=== PATIENT | female | born 1955 | race Caucasian/White ===

== ENCOUNTER → 2023-05-20 06:34 | Outpatient (REF) | payer MEDICARE, OTHER, SELFPAY ==
[2023-05-20 07:08] LABS: % Basophils 0.9 % (0-2); % Eosinophils 3.3 % (0-6); % Immature Granulocytes 0.9 % (0-0.5); % Lymphocytes 29.9 % (20.5-51.1); % Monocytes 9.9 % (1.7-9.3); % Neutrophils 55.1 % (42.2-75.2); Absolute Eosinophils 0.1 10^3/uL (0-0.7); Absolute Monocytes 0.3 10^3/uL (0.1-0.6); Absolute Neutrophils 1.8 10^3/uL (1.4-6.5); Hematocrit 42.5 % (37.0-47.0); Hemoglobin 13.7 g/dL (12.0-16.0); Mean Corp Hgb Conc. 32.2 g/dL (33.0-37.0); Mean Corpuscular Hgb 29.1 pg (27.0-31.0); Mean Corpuscular Volume 90.4 fL (81.0-99.0); Mean Platelet Volume 9.7 fL (7.4-10.4); Nucleated Red Blood Cells % 0 %; Platelet Count 239 10^3/uL (130-400); Red Cell Dist. Width 15.5 % (11.5-14.5); White Blood Cell Count 3.3 10^3/uL (4.8-10.8)
[2023-05-20 07:18] LABS: ALT (SGPT) 19 U/L (0-35); AST (SGOT) 27 U/L (14-36); Alkaline Phosphatase 109 U/L (38-126); Blood Urea Nitrogen 13 mg/dl (7-17); Calcium 9.3 mg/dl (8.4-10.2); Carbon Dioxide 32 mmol/L (22-30); Chloride 105 mmol/L (98-107); Glucose 95 mg/dl (70-99); Potassium 4.4 mmol/L (3.5-5.1); Sodium 139 mmol/L (135-145); Total Bilirubin 0.5 mg/dl (0.2-1.3); Total Protein 6.6 g/dl (6.3-8.2); eGFR > 60.00
== END ==
LOC: REG 06:34
PROVIDERS: ATTENDING PHYSICIAN Internal Medicine Hematology & Oncology; FAMILY PHYSICIAN Internal Medicine
DX: C50.412 Malignant neoplasm of upper-outer quadrant of left female breast (principal)
CPT/HCPCS: 36415; 80053; 85025

== ENCOUNTER → 2023-06-09 06:21 | Outpatient (REF) | payer MEDICARE, OTHER, SELFPAY ==
[2023-06-09 06:51] LABS: % Basophils 0.4 % (0-2); % Eosinophils 1.7 % (0-6); % Immature Granulocytes 0.4 % (0-0.5); % Monocytes 6.7 % (1.7-9.3); % Neutrophils 71.8 % (42.2-75.2); Absolute Eosinophils 0.1 10^3/uL (0-0.7); Absolute Monocytes 0.4 10^3/uL (0.1-0.6); Absolute Neutrophils 3.8 10^3/uL (1.4-6.5); Hematocrit 42.3 % (37.0-47.0); Mean Corp Hgb Conc. 33.1 g/dL (33.0-37.0); Mean Corpuscular Volume 87.8 fL (81.0-99.0); Mean Platelet Volume 9.5 fL (7.4-10.4); Nucleated Red Blood Cells % 0 %; Platelet Count 225 10^3/uL (130-400); Red Blood Cell Count 4.82 10^6/uL (4.20-5.40); Red Cell Dist. Width 14.8 % (11.5-14.5); White Blood Cell Count 5.3 10^3/uL (4.8-10.8)
[2023-06-09 07:26] LABS: ALT (SGPT) 20 U/L (0-35); AST (SGOT) 32 U/L (14-36); Alkaline Phosphatase 85 U/L (38-126); Blood Urea Nitrogen 22 mg/dl (7-17); Calcium 9.6 mg/dl (8.4-10.2); Carbon Dioxide 28 mmol/L (22-30); Chloride 102 mmol/L (98-107); Glucose 94 mg/dl (70-99); Potassium 4.6 mmol/L (3.5-5.1); Sodium 139 mmol/L (135-145); Total Bilirubin 0.7 mg/dl (0.2-1.3); Total Protein 7.4 g/dl (6.3-8.2); eGFR > 60.00
== END ==
LOC: REG 06:21
PROVIDERS: ATTENDING PHYSICIAN Internal Medicine Hematology & Oncology; FAMILY PHYSICIAN Internal Medicine
DX: C50.412 Malignant neoplasm of upper-outer quadrant of left female breast (principal); D50.9 Iron deficiency anemia, unspecified
CPT/HCPCS: 36415; 80053; 85025

== ENCOUNTER → 2023-06-23 09:50 | Outpatient (REF) | payer MEDICARE, OTHER, SELFPAY | LOC: MRI 3T 09:50 | PROVIDERS: ATTENDING PHYSICIAN Surgery; FAMILY PHYSICIAN Internal Medicine | DX: R92.8 Other abnormal and inconclusive findings on diagnostic imaging of breast (principal) | CPT/HCPCS: 77049; 93306; 93356; A9585 ==

== ENCOUNTER → 2023-07-01 06:20 | Outpatient (REF) | payer MEDICARE, OTHER, SELFPAY ==
[2023-07-01 06:55] LABS: % Basophils 0.7 % (0-2); % Eosinophils 2.6 % (0-6); % Immature Granulocytes 0.2 % (0-0.5); % Lymphocytes 24.4 % (20.5-51.1); % Monocytes 8.1 % (1.7-9.3); Absolute Eosinophils 0.1 10^3/uL (0-0.7); Absolute Lymphocytes 1.1 10^3/uL (1.2-3.4); Absolute Monocytes 0.4 10^3/uL (0.1-0.6); Absolute Neutrophils 2.8 10^3/uL (1.4-6.5); Hematocrit 43.2 % (37.0-47.0); Hemoglobin 13.7 g/dL (12.0-16.0); Mean Corp Hgb Conc. 31.7 g/dL (33.0-37.0); Mean Corpuscular Volume 91.3 fL (81.0-99.0); Mean Platelet Volume 9.9 fL (7.4-10.4); Nucleated Red Blood Cells % 0 %; Platelet Count 184 10^3/uL (130-400); Red Blood Cell Count 4.73 10^6/uL (4.20-5.40); White Blood Cell Count 4.3 10^3/uL (4.8-10.8)
[2023-07-01 07:29] LABS: ALT (SGPT) 29 U/L (0-35); AST (SGOT) 31 U/L (14-36); Albumin 4.2 g/dl (3.5-5.0); Alkaline Phosphatase 95 U/L (38-126); Blood Urea Nitrogen 16 mg/dl (7-17); Calcium 9.3 mg/dl (8.4-10.2); Carbon Dioxide 26 mmol/L (22-30); Chloride 106 mmol/L (98-107); Glucose 92 mg/dl (70-99); Potassium 4.3 mmol/L (3.5-5.1); Sodium 139 mmol/L (135-145); Total Bilirubin 0.5 mg/dl (0.2-1.3); Total Protein 6.9 g/dl (6.3-8.2); eGFR > 60.00
== END ==
LOC: REG 06:20
PROVIDERS: ATTENDING PHYSICIAN Internal Medicine Hematology & Oncology; FAMILY PHYSICIAN Internal Medicine
DX: C50.412 Malignant neoplasm of upper-outer quadrant of left female breast (principal); D50.9 Iron deficiency anemia, unspecified
CPT/HCPCS: 36415; 80053; 85025

== ENCOUNTER → 2023-07-22 06:16 | Outpatient (REF) | payer MEDICARE, OTHER, SELFPAY ==
[2023-07-22 07:35] LABS: % Basophils 0.8 % (0-2); % Eosinophils 3.2 % (0-6); % Immature Granulocytes 0.3 % (0-0.5); % Lymphocytes 29.2 % (20.5-51.1); % Monocytes 8.1 % (1.7-9.3); % Neutrophils 58.4 % (42.2-75.2); Absolute Eosinophils 0.1 10^3/uL (0-0.7); Absolute Lymphocytes 1.1 10^3/uL (1.2-3.4); Absolute Monocytes 0.3 10^3/uL (0.1-0.6); Absolute Neutrophils 2.2 10^3/uL (1.4-6.5); Hematocrit 42.7 % (37.0-47.0); Hemoglobin 14.2 g/dL (12.0-16.0); Mean Corp Hgb Conc. 33.3 g/dL (33.0-37.0); Mean Corpuscular Volume 90.1 fL (81.0-99.0); Mean Platelet Volume 10.1 fL (7.4-10.4); Nucleated Red Blood Cells % 0 %; Platelet Count 197 10^3/uL (130-400); Red Blood Cell Count 4.74 10^6/uL (4.20-5.40); Red Cell Dist. Width 14.3 % (11.5-14.5); White Blood Cell Count 3.7 10^3/uL (4.8-10.8)
[2023-07-22 08:07] LABS: ALT (SGPT) 29 U/L (0-35); AST (SGOT) 32 U/L (14-36); Albumin 4.6 g/dl (3.5-5.0); Alkaline Phosphatase 91 U/L (38-126); Blood Urea Nitrogen 20 mg/dl (7-17); Carbon Dioxide 28 mmol/L (22-30); Chloride 102 mmol/L (98-107); Glucose 91 mg/dl (70-99); Potassium 4.2 mmol/L (3.5-5.1); Sodium 139 mmol/L (135-145); Total Bilirubin 0.6 mg/dl (0.2-1.3); Total Protein 7.1 g/dl (6.3-8.2); eGFR > 60.00
== END ==
LOC: REG 06:16
PROVIDERS: ATTENDING PHYSICIAN Internal Medicine Hematology & Oncology; FAMILY PHYSICIAN Internal Medicine
DX: C50.412 Malignant neoplasm of upper-outer quadrant of left female breast (principal); D50.9 Iron deficiency anemia, unspecified
CPT/HCPCS: 36415; 80053; 85025

== ENCOUNTER → 2023-08-12 06:22 | Outpatient (REF) | payer MEDICARE, OTHER, SELFPAY ==
[2023-08-12 07:40] LABS: % Basophils 0.8 % (0-2); % Eosinophils 3.1 % (0-6); % Immature Granulocytes 0.3 % (0-0.5); % Lymphocytes 28.3 % (20.5-51.1); % Monocytes 8.2 % (1.7-9.3); % Neutrophils 59.3 % (42.2-75.2); Absolute Eosinophils 0.1 10^3/uL (0-0.7); Absolute Monocytes 0.3 10^3/uL (0.1-0.6); Absolute Neutrophils 2.1 10^3/uL (1.4-6.5); Hematocrit 41.9 % (37.0-47.0); Hemoglobin 14.1 g/dL (12.0-16.0); Mean Corp Hgb Conc. 33.7 g/dL (33.0-37.0); Mean Corpuscular Hgb 30.5 pg (27.0-31.0); Mean Corpuscular Volume 90.5 fL (81.0-99.0); Mean Platelet Volume 10.1 fL (7.4-10.4); Nucleated Red Blood Cells % 0 %; Platelet Count 193 10^3/uL (130-400); Red Blood Cell Count 4.63 10^6/uL (4.20-5.40); Red Cell Dist. Width 13.7 % (11.5-14.5); White Blood Cell Count 3.5 10^3/uL (4.8-10.8)
[2023-08-12 07:51] LABS: ALT (SGPT) 34 U/L (0-35); AST (SGOT) 34 U/L (14-36); Albumin 4.3 g/dl (3.5-5.0); Alkaline Phosphatase 90 U/L (38-126); Blood Urea Nitrogen 20 mg/dl (7-17); Carbon Dioxide 25 mmol/L (22-30); Chloride 106 mmol/L (98-107); Glucose 96 mg/dl (70-99); Potassium 4.3 mmol/L (3.5-5.1); Sodium 139 mmol/L (135-145); Total Bilirubin 0.4 mg/dl (0.2-1.3); Total Protein 6.9 g/dl (6.3-8.2); eGFR > 60.00
== END ==
LOC: REG 06:22
PROVIDERS: ATTENDING PHYSICIAN Internal Medicine Hematology & Oncology
DX: C50.412 Malignant neoplasm of upper-outer quadrant of left female breast (principal); D50.9 Iron deficiency anemia, unspecified
CPT/HCPCS: 36415; 80053; 85025

== ENCOUNTER → 2023-09-23 13:17 | Outpatient (REF) | payer MEDICARE, OTHER, SELFPAY | LOC: RCS 13:17 | PROVIDERS: ATTENDING PHYSICIAN Internal Medicine Cardiovascular Disease; FAMILY PHYSICIAN Internal Medicine; REFERRING PHYSICIAN Internal Medicine Hematology & Oncology | DX: R94.31 Abnormal electrocardiogram [ECG] [EKG] (principal); T45.1X5D Adverse effect of antineoplastic and immunosuppressive drugs, subsequent encounter; C50.412 Malignant neoplasm of upper-outer quadrant of left female breast; D50.9 Iron deficiency anemia, unspecified | CPT/HCPCS: 93017; 93350 ==

== ENCOUNTER → 2023-10-05 12:18 | Outpatient (REF) | payer MEDICARE, OTHER, SELFPAY ==
[2023-10-05 13:04] LABS: % Basophils 0.5 % (0-2); % Eosinophils 1.9 % (0-6); % Immature Granulocytes 0.2 % (0-0.5); % Lymphocytes 31.4 % (20.5-51.1); % Monocytes 7.9 % (1.7-9.3); % Neutrophils 58.1 % (42.2-75.2); Absolute Eosinophils 0.1 10^3/uL (0-0.7); Absolute Lymphocytes 1.3 10^3/uL (1.2-3.4); Absolute Monocytes 0.3 10^3/uL (0.1-0.6); Absolute Neutrophils 2.4 10^3/uL (1.4-6.5); Hematocrit 41.5 % (37.0-47.0); Hemoglobin 13.7 g/dL (12.0-16.0); Mean Corpuscular Hgb 30.4 pg (27.0-31.0); Mean Corpuscular Volume 92.2 fL (81.0-99.0); Mean Platelet Volume 10.2 fL (7.4-10.4); Nucleated Red Blood Cells % 0 %; Platelet Count 176 10^3/uL (130-400); Red Cell Dist. Width 12.9 % (11.5-14.5); White Blood Cell Count 4.2 10^3/uL (4.8-10.8)
[2023-10-05 13:29] LABS: ALT (SGPT) 30 U/L (0-35); AST (SGOT) 31 U/L (14-36); Albumin 4.4 g/dl (3.5-5.0); Alkaline Phosphatase 91 U/L (38-126); Blood Urea Nitrogen 12 mg/dl (7-17); Calcium 9.9 mg/dl (8.4-10.2); Carbon Dioxide 28 mmol/L (22-30); Chloride 104 mmol/L (98-107); Glucose 89 mg/dl (70-99); HDL Cholesterol 60 mg/dl; LDL Cholesterol, Calculated 106 mg/dl; Potassium 4.3 mmol/L (3.5-5.1); Sodium 141 mmol/L (135-145); Total Bilirubin 0.6 mg/dl (0.2-1.3); Total Cholesterol 178 mg/dl (50-199); Total Protein 6.9 g/dl (6.3-8.2); Triglyceride 64 mg/dl (10-149); Very Low Density Lipoprotein 12 mg/dl (0-30); eGFR > 60.00
[2023-10-06 17:27] LABS: CA 27-29 11.5 U/mL (<=39.0)
== END ==
LOC: REG 12:18
PROVIDERS: ATTENDING PHYSICIAN Internal Medicine Hematology & Oncology; FAMILY PHYSICIAN Internal Medicine
DX: C50.412 Malignant neoplasm of upper-outer quadrant of left female breast (principal); D50.9 Iron deficiency anemia, unspecified; E44.1 Mild protein-calorie malnutrition
CPT/HCPCS: 36415; 80053; 80061; 85025; 86300

== ENCOUNTER → 2023-12-23 06:30 | Outpatient (REF) | payer MEDICARE, OTHER, SELFPAY ==
[2023-12-23 07:50] LABS: % Basophils 1.1 % (0-2); % Eosinophils 2.4 % (0-6); % Immature Granulocytes 0.3 % (0-0.5); % Lymphocytes 30.8 % (20.5-51.1); % Monocytes 8.9 % (1.7-9.3); % Neutrophils 56.5 % (42.2-75.2); Absolute Eosinophils 0.1 10^3/uL (0-0.7); Absolute Lymphocytes 1.2 10^3/uL (1.2-3.4); Absolute Monocytes 0.3 10^3/uL (0.1-0.6); Absolute Neutrophils 2.2 10^3/uL (1.4-6.5); Hematocrit 42.5 % (37.0-47.0); Hemoglobin 14.3 g/dL (12.0-16.0); Mean Corp Hgb Conc. 33.6 g/dL (33.0-37.0); Mean Corpuscular Hgb 31.4 pg (27.0-31.0); Mean Corpuscular Volume 93.4 fL (81.0-99.0); Mean Platelet Volume 10.5 fL (7.4-10.4); Nucleated Red Blood Cells % 0 %; Platelet Count 188 10^3/uL (130-400); Red Blood Cell Count 4.55 10^6/uL (4.20-5.40); Red Cell Dist. Width 13.2 % (11.5-14.5); White Blood Cell Count 3.8 10^3/uL (4.8-10.8)
[2023-12-23 08:26] LABS: ALT (SGPT) 25 U/L (0-35); AST (SGOT) 32 U/L (14-36); Albumin 4.4 g/dl (3.5-5.0); Alkaline Phosphatase 78 U/L (38-126); Blood Urea Nitrogen 18 mg/dl (7-17); Calcium 9.7 mg/dl (8.4-10.2); Carbon Dioxide 26 mmol/L (22-30); Chloride 104 mmol/L (98-107); Glucose 95 mg/dl (70-99); HDL Cholesterol 72 mg/dl; LDL Cholesterol, Calculated 112 mg/dl; Potassium 4.5 mmol/L (3.5-5.1); Sodium 143 mmol/L (135-145); Total Bilirubin 0.6 mg/dl (0.2-1.3); Total Cholesterol 199 mg/dl (50-199); Triglyceride 78 mg/dl (10-149); Very Low Density Lipoprotein 15 mg/dl (0-30); eGFR > 60.00
[2023-12-24 23:29] LABS: CA 27-29 27.5 U/mL (<=39.0)
== END ==
LOC: REG 06:30
PROVIDERS: ATTENDING PHYSICIAN Internal Medicine Hematology & Oncology; FAMILY PHYSICIAN Internal Medicine
DX: C50.412 Malignant neoplasm of upper-outer quadrant of left female breast (principal); D50.9 Iron deficiency anemia, unspecified; Z79.899 Other long term (current) drug therapy
CPT/HCPCS: 36415; 80053; 80061; 85025; 86300

== ENCOUNTER → 2024-01-13 08:11 | Outpatient (REF) | payer MEDICARE, OTHER, SELFPAY | LOC: HWRAD 08:11 | PROVIDERS: ATTENDING PHYSICIAN Internal Medicine Hematology & Oncology; FAMILY PHYSICIAN Internal Medicine | DX: C50.412 Malignant neoplasm of upper-outer quadrant of left female breast (principal); D50.9 Iron deficiency anemia, unspecified | CPT/HCPCS: 71260; 74177; Q9967 ==

== ENCOUNTER → 2024-01-20 07:48 | Outpatient (REF) | payer MEDICARE, OTHER, SELFPAY | LOC: RAD 07:48 | PROVIDERS: ATTENDING PHYSICIAN Internal Medicine Hematology & Oncology; FAMILY PHYSICIAN Internal Medicine | DX: C50.412 Malignant neoplasm of upper-outer quadrant of left female breast (principal); D50.9 Iron deficiency anemia, unspecified | CPT/HCPCS: 78306; A9503 ==

== ENCOUNTER → 2024-02-16 08:42 | Outpatient (REF) | payer MEDICARE, OTHER, SELFPAY | LOC: HWRAD 08:42 | PROVIDERS: ATTENDING PHYSICIAN Internal Medicine | DX: M81.0 Age-related osteoporosis without current pathological fracture (principal) | CPT/HCPCS: 77080 ==

== ENCOUNTER → 2024-02-19 09:42 | Outpatient (REF) | payer MEDICARE, OTHER, SELFPAY | LOC: HWWDC 09:42 | PROVIDERS: ATTENDING PHYSICIAN Internal Medicine Hematology & Oncology; FAMILY PHYSICIAN Internal Medicine | DX: Z12.31 Encounter for screening mammogram for malignant neoplasm of breast (principal) | CPT/HCPCS: 77063; 77067 ==

== ENCOUNTER → 2024-05-27 06:19 | Outpatient (REF) | payer MEDICARE, OTHER, SELFPAY ==
[2024-05-27 07:31] LABS: % Eosinophils 2.3 % (0-6); % Immature Granulocytes 0.3 % (0-0.5); % Lymphocytes 30.5 % (20.5-51.1); % Monocytes 7.6 % (1.7-9.3); % Neutrophils 58.3 % (42.2-75.2); Absolute Eosinophils 0.1 10^3/uL (0-0.7); Absolute Lymphocytes 1.2 10^3/uL (1.2-3.4); Absolute Monocytes 0.3 10^3/uL (0.1-0.6); Absolute Neutrophils 2.3 10^3/uL (1.4-6.5); Hematocrit 44.7 % (37.0-47.0); Hemoglobin 14.6 g/dL (12.0-16.0); Mean Corp Hgb Conc. 32.7 g/dL (33.0-37.0); Mean Corpuscular Hgb 30.4 pg (27.0-31.0); Mean Corpuscular Volume 93.1 fL (81.0-99.0); Mean Platelet Volume 10.3 fL (7.4-10.4); Nucleated Red Blood Cells % 0 %; Platelet Count 183 10^3/uL (130-400); Red Cell Dist. Width 13.2 % (11.5-14.5); White Blood Cell Count 3.9 10^3/uL (4.8-10.8)
[2024-05-27 07:49] LABS: ALT (SGPT) 28 U/L (0-35); AST (SGOT) 29 U/L (14-36); Albumin 4.2 g/dl (3.5-5.0); Alkaline Phosphatase 62 U/L (38-126); Blood Urea Nitrogen 20 mg/dl (7-17); Calcium 9.4 mg/dl (8.4-10.2); Carbon Dioxide 29 mmol/L (22-30); Chloride 105 mmol/L (98-107); Glucose 95 mg/dl (70-99); HDL Cholesterol 84 mg/dl; LDL Cholesterol, Calculated 111 mg/dl; Sodium 141 mmol/L (135-145); Total Bilirubin 0.4 mg/dl (0.2-1.3); Total Cholesterol 204 mg/dl (50-199); Total Protein 6.8 g/dl (6.3-8.2); Triglyceride 47 mg/dl (10-149); Very Low Density Lipoprotein 9 mg/dl (0-30); eGFR > 60.00
[2024-05-29 02:21] LABS: CA 27-29 27.1 U/mL (<=39.0)
== END ==
LOC: REG 06:19
PROVIDERS: ATTENDING PHYSICIAN Internal Medicine Hematology & Oncology; FAMILY PHYSICIAN Internal Medicine
DX: C50.412 Malignant neoplasm of upper-outer quadrant of left female breast (principal); D50.9 Iron deficiency anemia, unspecified; C50.919 Malignant neoplasm of unspecified site of unspecified female breast; E44.1 Mild protein-calorie malnutrition; K29.70 Gastritis, unspecified, without bleeding
CPT/HCPCS: 36415; 80053; 80061; 85025; 86300

== ENCOUNTER → 2024-06-09 08:21 | Outpatient (REF) | payer MEDICARE, OTHER, SELFPAY | LOC: WDC 08:21 | PROVIDERS: ATTENDING PHYSICIAN Family Medicine Geriatric Medicine; FAMILY PHYSICIAN Internal Medicine | DX: R92.2 Inconclusive mammogram (principal); Z85.3 Personal history of malignant neoplasm of breast | CPT/HCPCS: 76641 ==

== ENCOUNTER → 2024-10-24 06:22 | Outpatient (REF) | payer MEDICARE, OTHER, SELFPAY ==
[2024-10-24 07:38] LABS: Hematocrit 43.1 % (37.0-47.0); Hemoglobin 14.3 g/dL (12.0-16.0); Mean Corp Hgb Conc. 33.2 g/dL (33.0-37.0); Mean Corpuscular Volume 92.1 fL (81.0-99.0); Nucleated Red Blood Cells % 0 %; Platelet Count 170 10^3/uL (130-400); Red Cell Dist. Width 13.5 % (11.5-14.5)
[2024-10-24 08:07] LABS: ALT (SGPT) 20 U/L (0-35); AST (SGOT) 24 U/L (14-36); Albumin 4.6 g/dl (3.5-5.0); Alkaline Phosphatase 63 U/L (38-126); Blood Urea Nitrogen 18 mg/dl (7-17); Calcium 9.6 mg/dl (8.4-10.2); Carbon Dioxide 26 mmol/L (22-30); Chloride 107 mmol/L (98-107); Glucose 99 mg/dl (70-99); HDL Cholesterol 70 mg/dl; LDL Cholesterol, Calculated 129 mg/dl; Potassium 4.5 mmol/L (3.5-5.1); Sodium 141 mmol/L (135-145); Total Protein 7.2 g/dl (6.3-8.2); Very Low Density Lipoprotein 11 mg/dl (0-30); eGFR > 60.00
[2024-10-25 23:00] LABS: CA 27-29 24.7 U/mL (<=39.0)
== END ==
LOC: REG 06:22
PROVIDERS: ATTENDING PHYSICIAN Internal Medicine Hematology & Oncology
DX: C50.412 Malignant neoplasm of upper-outer quadrant of left female breast (principal); D50.9 Iron deficiency anemia, unspecified; E44.1 Mild protein-calorie malnutrition
CPT/HCPCS: 36415; 80053; 80061; 85025; 86300

== ENCOUNTER → 2025-02-01 08:28 | Outpatient (REF) | payer MEDICARE, OTHER, SELFPAY ==
[2025-02-01 12:22] LABS: Hematocrit 42.0 % (37.0-47.0); Hemoglobin 14.0 g/dL (12.0-16.0); Mean Corp Hgb Conc. 33.3 g/dL (33.0-37.0); Mean Corpuscular Volume 92.7 fL (81.0-99.0); Nucleated Red Blood Cells % 0 %; Platelet Count 199 10^3/uL (130-400); Red Cell Dist. Width 13.2 % (11.5-14.5)
[2025-02-01 12:35] LABS: ALT (SGPT) 22 U/L (0-35); AST (SGOT) 26 U/L (14-36); Albumin 4.5 g/dl (3.5-5.0); Alkaline Phosphatase 66 U/L (38-126); Blood Urea Nitrogen 23 mg/dl (7-17); Calcium 9.6 mg/dl (8.4-10.2); Carbon Dioxide 28 mmol/L (22-30); Chloride 106 mmol/L (98-107); Glucose 94 mg/dl (70-99); HDL Cholesterol 85 mg/dl; LDL Cholesterol, Calculated 126 mg/dl; Potassium 4.4 mmol/L (3.5-5.1); Sodium 137 mmol/L (135-145); Total Protein 7.4 g/dl (6.3-8.2); Very Low Density Lipoprotein 8 mg/dl (0-30); eGFR > 60.00
[2025-02-01 12:51] LABS: Vitamin D, 25-OH*** 71.9 ng/mL (30-80)
== END ==
LOC: HWLAB 08:28
DX: Z00.01 Encounter for general adult medical examination with abnormal findings (principal); E78.2 Mixed hyperlipidemia; M85.80 Other specified disorders of bone density and structure, unspecified site; C50.919 Malignant neoplasm of unspecified site of unspecified female breast
CPT/HCPCS: 36415; 80053; 80061; 82306; 84443; 85025

== ENCOUNTER → 2025-02-21 06:32 | Outpatient (REF) | payer MEDICARE, OTHER, SELFPAY | LOC: WDC 06:32 | PROVIDERS: ATTENDING PHYSICIAN Internal Medicine Hematology & Oncology | DX: C50.412 Malignant neoplasm of upper-outer quadrant of left female breast (principal); Z12.31 Encounter for screening mammogram for malignant neoplasm of breast | CPT/HCPCS: 77063; 77067 ==

== ENCOUNTER → 2025-03-20 07:03 | Outpatient (REF) | payer MEDICARE, OTHER, SELFPAY | LOC: RAD 07:03 | PROVIDERS: ATTENDING PHYSICIAN Internal Medicine Hematology & Oncology | DX: D50.9 Iron deficiency anemia, unspecified (principal); C50.412 Malignant neoplasm of upper-outer quadrant of left female breast; Z12.5 Encounter for screening for malignant neoplasm of prostate | CPT/HCPCS: 77080 ==